=== PATIENT | female | born 1945 | race Caucasian/White ===

== ENCOUNTER 2017-04-26 16:57 | Emergency (ER) | payer OTHER ==
[~2017-04-26] VITALS: Ht 160 cm; Wt 61.8 kg
[2017-04-26 17:06] VITALS: BP 202/92
--- NOTE | 2017-04-26 17:30 | NUR ---
71/F present to ER c/o hypertension 197/113 today intermittent dizziness--- mild dizziness, no facial asymmetry noted, ambulatory with steady gait, full clear speech, hx--htn, dm, rx---metformin 500mg bid, lisinopril 40mg qd, carvedilol 25mg bid, amlodipine 2.5mg hs, asa 81mg qd
[2017-04-26 18:06] LABS: BASOPHILS # (AUTO) 0.3 K/uL (0.00-0.22); BASOPHILS % (AUTO) 3.1 % (0.0-2.0); EOSINOPHILS # (AUTO) 0.3 K/uL (0-0.4); EOSINOPHILS % (AUTO) 2.9 % (0.0-4.0); HEMATOCRIT 44.8 % (36-48); HEMOGLOBIN 14.9 g/dL (12.0-16.0); LYMPHOCYTES # (AUTO) 1.5 K/uL (2.5-16.5); LYMPHOCYTES % (AUTO) 16.5 % (20.5-51.1); MEAN CORPUSCULAR HEMOGLOBIN 27 pg (27-31); MEAN CORPUSCULAR HGB CONC 33 g/dL (33-37); MEAN CORPUSCULAR VOLUME 82 fL (80-94); MONOCYTES # (AUTO) 0.7 K/uL (0.8-1.0); MONOCYTES % (AUTO) 7.8 % (1.7-9.3); NEUTROPHILS # (AUTO) 6.1 K/uL (1.8-7.7); NEUTROPHILS % (AUTO) 69.7 % (42.2-75.2); PLATELET COUNT (AUTO) 239 K/uL (140-450); RED BLOOD CELL COUNT(AUTO) 5.48 MIL/uL (4.20-5.40); RED CELL DISTRIBUTION WIDTH 12.2 % (11.6-13.7); WHITE BLOOD COUNT (AUTO) 8.9 K/uL (4.8-10.8)
[2017-04-26 18:14] LABS: ANION GAP 11.2 (8-16); CARBON DIOXIDE 29.5 mmol/L (21-32); CHLORIDE 103 mmol/L (98-107); CREATININE 1.1 mg/dL (0.6-1.3); GLUCOSE 158 mg/dL (74-106); POTASSIUM 3.7 mmol/L (3.5-5.1); SODIUM SERUM 140 mmol/L (136-145); UREA NITROGEN, BLOOD 16 mg/dL (7-18)
[2017-04-26 18:20] LABS: ALBUMIN 3.8 g/dL (3.4-5.0); ASPARTATE AMINOTRANSFERASE 13 U/L (15-37); TOTAL BILIRUBIN 0.4 mg/dL (0.0-1.0)
[2017-04-26 18:27] LABS: CREATINE KINASE MB 0.7 ng/mL (0-3.6)
[2017-04-26] MEDS ORDERED: ACETAMINOPHEN EXTRA STRENGTH 500 MG TAB PO ONE (18:35)
[2017-04-26 19:15] VITALS: BP 165/75
--- NOTE | 2017-04-26 19:20 | NUR ---
Patient discharged with v/s stable. Written and verbal after care instructions given and explained. Patient alert, oriented and verbalized understanding of instructions. Ambulatory with steady gait. All questions addressed prior to discharge. ID band removed. Patient advised to follow up with PMD. Rx of norvasc 5mg given. Patient educated on indication of medication including possible reaction and side effects. Opportunity to ask questions provided and answered.
== END 2017-04-26 19:20 | disposition home or self-care (01) ==
LOC: MED 16:57
DX: I10 Essential (primary) hypertension (principal); R51 Headache; R42 Dizziness and giddiness
CPT/HCPCS: 36415; 70450; 71045; 80053; 82550; 82553; 82948; 84484; 85025; 93005; 99285